=== PATIENT | female | born 1945 | race Caucasian/White ===

== ENCOUNTER 2017-04-10 12:33 | Emergency (ER) | payer MEDICARE, OTHER ==
--- NOTE | 2017-04-10 13:15 | ERNOTE ---
Date of Service: 04/10/17 Time Seen by Provider: 04/10/17 13:02 Stated Complaint: URI Presenting Symptoms:: other Source: patient, family, RN notes reviewed Exam Limitations: no limitations Immunizations: IMMUNIZATION HX Immunizations Up to Date Yes History of Influenza Vaccine Yes Hx Pneumococcal Vaccination Yes Allergies/Adverse Reactions: Allergies Sulfa (Sulfonamide Antibiotics) Allergy (Mild, Verified 04/10/17 12:42) Vomiting Home Medications: HOME MEDICATIONS Multivit-Min/FA/Lycopene/Lut [Centrum Silver Tablet] 1 tab PO DAILY 02/17/14 [ Last Taken Unknown] Albuterol Sulfate/Ipratropium [Duoneb 2.5-0.5MG/3ML Soln] 3 ml IH Q6H PRN #40 nebu 04/10/17 [Last Taken Unknown] Azithromycin [Zithromax] 250 mg PO DAILY #4 tablet 04/10/17 [Last Taken Unknown] Escitalopram Oxalate 10 mg PO DAILY 04/10/17 [Last Taken Unknown] Multivitamin/Iron/Folic Acid [Centrum Adults Tablet] 1 each PO DAILY 04/10/17 [ Last Taken Unknown] Promethazine HCl/Codeine [Prometh-Codein 6.25-10 mg/5 ml] 5 ml PO Q4H PRN #120 ml 04/10/17 [Last Taken Unknown] Pseudoephedrine HCl [Pseudoephedrine ER] 120 mg PO BID PRN 04/10/17 [Last Taken Unknown] - History of Present Ilness Narrative: 71 year old female brought to the ED by her daughter for tachycardia and a low oxygen saturation. The patient was diagnosed with influenza on 04/08. She was started on Tamiflu and pseudophed. She reports feeling better yesterday, but today is having more shortness of breath and chest discomfort. Her daughter is a RT. She checked her O2 sat and found it to be 88% with a heart rate in the 120 's. Her chest discomfort is in the mid-sternal region and radiates into her back. It is worse with coughing and deep breathing. She has not had any medications today except for the Tamiflu and pseudophed. Modifying Factors - Improves: Reports: rest Modifying Factors - Worsens: Reports: activity Prior Treatment: Reports: recently seen. Denies: currently on antibiotics Review of Systems - Review of Systems Constitutional: Present: fever, chills, fatigue, malaise, decreased activity level EYE: Absent: eye pain, vision changes ENT: Present: nose congestion. Absent: ear pain, nasal drainage, sore throat Respiratory: Present: shortness of breath, cough. Absent: orthopnea, wheezing, stridor Cardiology: Present: chest pain. Absent: palpitations, syncope, edema, claudication Gastrointestinal/Abdominal: Absent: nausea, abdominal pain Genitourinary: Present: no symptoms reported Musculoskeletal: Present: no symptoms reported Skin: Absent: rash, lesions, lumps Neurological: Present: headache. Absent: dizziness/light-headedness Endocrine: Present: no symptoms reported Hematologic/Lymphatic: Absent: easy bruising, easy bleeding Psych: Present: no symptoms reported - Patient's Past Medical History Patient History - Medical: Depression Patient History - Cardiac/Respiratory: No pertinent hx Patient History - Cancer: No Hx of Cancer Patient History - Surgical Procedures: T & A Patient History - Other: None LMP (females 10-50): Menopausal - Social History Living Situations: home Psych History: Hx of Depression, Current tx/ever been on anti-depressants or anti-anxiety meds Smoking Status: Current every day smoker Alcohol Use: rarely Drug Use: none - Immunizations Immunizations Up to Date: Yes Hx Pneumococcal Vaccination: Yes History of Influenza Vaccine: Yes Physical Exam - Physical Exam General Appearance: Present: wd/wn, alert, no apparent distress, thin Head Exam: Present: normal inspection Eye Exam: Normal inspection: bilateral Ears, Nose, Throat: Present: normal ENT inspection, normal pharynx Neck: Present: normal inspection, nontender, supple Respiratory: Present: no respiratory distress, no accessory muscle use, decreased breath sounds, expiration (prolonged) Cardiovascular/Chest: Present: no murmur, normal peripheral pulses, tachycardia Extremity Exam: Present: normal inspection, normal range of motion, no edema Neurological Exam: Present: alert, oriented, normal mood/affect, no motor/ sensory deficits Skin Exam: Present: normal color, warm/dry ED Progress - Results and Orders Patient's Lab Results:: I have reviewed the patient's lab results. - Vital Signs Patient's Vital Signs:: I have reviewed the patient's vital signs. Vital Signs: Vital Signs 04/10/17 04/10/17 12:42 13:10 Temperature 37.5 C Pulse Rate 104 H 100 Respiratory 16 16 Rate Blood Pressure 111/65 102/66 O2 Sat by Pulse 91 93 Oximetry - EKG EKG: ST depression, other - sinus tach 111 EKG read: Reviewed by me - X-Ray X-Ray #1 X-Ray: chest Interpretation: Reviewed by me X-ray Comments: IMPRESSION: MILD BIBASILAR CONSOLIDATION LEFT WORSE THAN RIGHT. AGAIN THIS MAY BE ATELECTASIS OR SCARRING THOUGH DEVELOPING INFECTIOUS INFILTRATES MUST BE CONSIDERED CLINICALLY. Electronically signed by Jeffery Matthews M.D.. - CT/Ultrasound CT/Ultrasound Narrative: CTA Chest IMPRESSION: 1. Negative for acute pulmonary thromboembolism. 2. Negative for acute thoracic aortic finding. 3. Bilateral bronchial wall thickening, and bilateral basal segmental bronchial opacities suggestive of retained mucous secretions/mucous plugging, or alternatively aspirated material. Correlate clinically. 4. Bilateral lower lobe basal segmental patchy airspace opacities. Lingular peripheral small opacity noted. Morphologically suggestive of infectious or inflammatory process. Correlate clinically for multifocal pneumonia. Recommend follow-up chest CT in 3 months to document resolution. 5. Nonspecific mediastinal lymphadenopathy. 6. Incidental 15 mm nodular lesion of the central left adrenal gland, which is indeterminate. Recommend routine characterization by MRI of the abdomen (preferred), versus adrenal protocol CT ( if MRI is contraindicated). Electronically signed by Moon Walker M.D.. Moon Walker MD - Progress/Reassessment Chief Complaint: Upper Respiratory Symptoms Progress:: Improved Departure Clinical Impression: Multifocal pneumonia - Departure Disposition: Home Follow Up Needed Condition: Stable Instructions: Community-Acquired Pneumonia, Adult, [id number] Additional Instructions: Stop pseudophed Follow up with your doctor in 1 week for recheck, return to ER if symptoms worsen Stop smoking Referrals: Sergey Cohen DO [Primary Care Provider] - Prescriptions: Albuterol Sulfate/Ipratropium [Duoneb 2.5-0.5MG/3ML Soln] 3 ml IH Q6H PRN #40 nebu PRN Reason: Wheezing Azithromycin [Zithromax] 250 mg PO DAILY #4 tablet Promethazine HCl/Codeine [Prometh-Codein 6.25-10 mg/5 ml] 5 ml PO Q4H PRN #120 ml PRN Reason: Cough
[2017-04-10 13:30] LABS: Hematocrit 40.2 % (37.0-47.0); Mean Cell Volume 90.5 fl (78-100); Mean Corpuscular Hemoglobin 31.5 pg (27-31); Mean Corpuscular Hgb Conc 34.8 g/dl (32-36); Neutrophil # 10.4 K/mm3 (1.3-6.0); Neutrophil % 85.6 % (42-75.0); Platelet Count 195 K/mm3 (150-450); Red Blood Count 4.44 M/mm3 (4.2-5.4); Red Cell Distribution Width 12.9 % (11.5-14.0); White Blood Count 12.2 K/mm3 (4.0-10.5)
[2017-04-10 13:50] LABS: ALT 20 U/L (19-67); AST 17 U/L (0-48); Albumin * 3.4 gm/dl (3.4-5.0); Alkaline Phosphatase * 65 U/L (50-170); BUN/Creatinine Ratio 17.2 (9.0-21.6); Bilirubin, Total 0.5 mg/dL (0.0-1.1); Blood Urea Nitrogen 15 mg/dL (3-23); Ca. Corrected For Albumin 8.9 mg/dL (8.4-10.2); Calcium * 8.7 mg/dL (7.9-10.9); Carbon Dioxide 25.7 mmol/L (24-32.6); Chloride 97 mmol/L (97-106); Glucose * 116 mg/dL (70-110); Potassium 3.7 mmol/L (3.4-4.6); Sodium 132 mmol/L (132-142); Total Protein 6.7 gm/dL (6.2-8.2); Troponin I Less than 0.017 ng/ml (0.00-0.10)
[2017-04-10] MEDS ORDERED: AZITHROMYCIN 250 MG TABLET PO ONE (14:13)
[2017-04-10] MEDS ORDERED: ALBUTEROL SULFATE/IPRATROPIUM 3 ML NEBU IH ONE ×2 (14:13→14:14)
[2017-04-10] MEDS ORDERED: AZITHROMYCIN 250 MG TABLET ONE (14:14)
[2017-04-10 15:47] VITALS: BP 113/62
== END 2017-04-10 16:02 | disposition home or self-care (01) ==
LOC: ER 12:33
DX: J18.8 Other pneumonia, unspecified organism (principal); F17.200 Nicotine dependence, unspecified, uncomplicated

== ENCOUNTER 2018-06-27 06:23 | Inpatient (IN) ==
--- NOTE | 2018-06-19 12:17 | ANES ---
Anesthesia Pre Procedure Eval HOME MEDICATIONS calcium carbonate-vitamin D3 600 mg calcium-200 unit capsule 2 cap PO DAILY cap 11/26/17 [Last Taken Unknown] yomyamge-vxybzgj-jdlv-lutein tablet 1 mcg PO DAILY tab 11/28/17 [Last Taken Unknown] glucosamine-chondroitin 250 mg-200 mg tablet 1 tab PO BID tab 01/16/18 [Last Taken Unknown] escitalopram 10 mg tablet 15 mg PO DAILY #45 tab 04/24/18 [Last Taken Unknown] ibuprofen 800 mg tablet 800 mg PO BID-TID PRN 06/05/18 [Last Taken Unknown] walker See Dose Instructions .ROUTE .MEDSUPPLY #1 ea 06/18/18 [Last Taken Unknown] Allergies/Adverse Reactions: Allergies Allergy/AdvReac Type Severity Reaction Status Date / Time Sulfa (Sulfonamide Allergy Mild Vomiting Verified 06/06/18 13:20 Antibiotics) - Planned Procedure Planned Procedure: L total knee on 06/27/18 and R total knee on 06/29 Medication List Reviewed:: Yes Allergies Verified: Yes Medical History (Last Reviewed 06/19/18 @ 12:16 by Zana Kaplan CRNA) Major depression (Chronic) Generalized anxiety disorder (Chronic) Chickenpox Onset Date: Unknown Chronic otitis media Onset Date: Unknown DJD (degenerative joint disease) Onset Date: Unknown DJD (degenerative joint disease) of knee Onset Date: Unknown Depression Eustachian tube dysfunction Onset Date: Unknown bilateral Headache Onset Date: Unknown Hearing loss Onset Date: Unknown Knee pain Onset Date: Unknown Mild episode of recurrent depressive disorder Osteopenia Onset Date: Unknown Otorrhea of right ear Onset Date: Unknown Tobacco abuse Onset Date: Unknown Tonsillitis, chronic Onset Date: Unknown Bronchitis Measles Mumps Pneumonia Rubella Surgical History (Last Reviewed 06/19/18 @ 12:16 by Zana Kaplan CRNA) History of adenoidectomy Onset Date: Unknown History of colonoscopy Onset Date: 02/25/14 Bhavaniely-' hyperplastic polyps x3. '14 tubular adenoma. Recheck 5 yrs.- 01/31/07, 02/25/14 Tinguely-hyperplastic polyp- 07/31/08 History of flexible sigmoidoscopy Onset Date: 02/20/07 Tinguely-hyperplastic polyps x3 History of tonsillectomy S/p bilateral myringotomy with tube placement Family History (Last Reviewed 02/05/19 @ 12:16 by Zana Kaplan CRNA) Father , 76 Cancer colon neoplasm, malignant Colon polyps lung problems Asthma Grandfather CVA (cerebral vascular accident) Brother Irregular heartbeat Hyperlipemia Mother Macular degeneration Osteoporosis Thyroid disease Hypothyroidism Hyperlipemia Grandmother CVA (cerebral vascular accident) Grandmother Cancer Grandfather Cancer stomach Brother Hyperlipemia - Family Anesthesia History Family History:: no untoward family reactions to anesthesia, no familial bleeding tendencies, no family history of clotting disorders, no family history of premature - Airway/Neck/Teeth Within Normal Limits:: Yes Denture Type: Full upper, Full lower Mallampatti Score: 1 Thyromental (T-M) distance: > 6 cm Mandibulo Hyoid distance: > 3 cm - Respiratory Respiratory History: COPD Smoking Status: Current every day smoker Discussed smoking cessation including day of surgery: Yes Sleep Apnea currently treated: No Sleep Apnea by current assessment: No Discussed Risks/Treatment of HOLLEY: No - Cardiovascular Tolerate Activity: Fair Heart Sounds: S1 & S2, Regular - Anesthesia Assessment and Plan ASA Class: PS, III Anesthesia Type Plan: Block - Left ultrasound guided adductor canal nerve block for postop analgesia, Spinal
[~2018-06-27 06:23] MED LIST: MORPHINE SULFATE 15 MG TABLET.SA PO PRN; ROPIVACAINE HCL/PF 100 MG, EPINEPHrine 0.2 MG, KETOROLAC TROMETHAMINE 30 MG in NORMAL S... IJ PRN; TRANEXAMIC ACID 1,000 MG in NORMAL SALINE 100 ML IV PRN; ceFAZolin SODIUM 1 GM VIAL IV PRN
[2018-06-27] MEDS: RINGER'S SOLUTION,LACTATED 1,000 ML IV PRN ×2 (07:13→09:03)
[2018-06-27] MEDS ORDERED: ONDANSETRON HCL/PF 2 MG/ML VIAL IV PRN (09:43)
[2018-06-27] MEDS ORDERED: diphenhydrAMINE HCL 50 MG/ML VIAL IV PRN (09:43)
[2018-06-27] MEDS ORDERED: MAG HYDROX/ALUMINUM HYD/SIMETH 30 ML UDC PO PRN (09:43)
[2018-06-27] MEDS ORDERED: ZOLPIDEM TARTRATE 5 MG TABLET PO PRN (09:43)
[2018-06-27] MEDS ORDERED: MAGNESIUM HYDROXIDE 30 ML UDC PO PRN (09:43)
[2018-06-27] MEDS ORDERED: DEXTROSE 5%-LACTATED RINGERS 1,000 ML IV PRN (09:43)
[2018-06-27] MEDS ORDERED: ACETAMINOPHEN 500 MG TABLET PO PRN (09:43)
[2018-06-27] MEDS ORDERED: MORPHINE SULFATE 2 MG/ML DISP.SYRIN IV PRN (09:43)
--- NOTE | 2018-06-27 09:47 | OR ---
Operative Report - Dictated Report Narrative: Date: 06/27/2018 Preoperative diagnosis: Left Knee degenerative joint disease. Postoperative diagnosis: Left Knee degenerative joint disease. Procedure: Left Total knee arthroplasty. Surgeon: Alpesh Phillips M.D. Rubbish Collector: Earl Horn PA-C (provided and essential set of skilled, educated hands that assisted with transfer, positioning, prepping, draping, manipulation, retraction, placement of jigs, injection, insertion of implants, irrigation, closure wounds, and dressings all of which could not be performed by the available surgical crew) Anesthesia: Spinal with regional block and local periarticular joint injection. Complications: None Specimens: Bone for disposal. Estimated blood loss: Minimal. Tourniquet time: 88 Minutes at 325 millimeters of mercury. Retained implants: Depuy Attune size 6 narrow left lugged cemented posterior stabilized femoral co mponent. Size 5 fixed-bearing cemented tibial platform. 6 by 8 millimeter posterior stabilized cross-linked tibial insert. 38 millimeter medialized patella button. Indications: Mrs. Murry is a 72-year-old female who has had long-standing bilateral knee pain. She is here today for her first of 2 staged bilateral total knees. Today her left for long-standing knee pain and arthrosis. This p atient was followed in my clinic for period of time with significant complaints of left knee pain consistent with arthritic changes. She had failed conservative measures including, but not limited to, activity modification, passage of time, medications, and other conservative measures. Patient wished to proceed with surgical treatment. The risks, benefits, and alternatives were discussed in clinic. The risks of , blood clots, bleeding, infection, nerve/tendon blood vessel/ injury, malposition of components, intraoperative fracture, postoperative limited range of motion, persistent pain, failure of components, and need for additional procedures. Patient wished to proceed consent was obtained after answering all questions. Procedure: After marking the correct extremity on the floor, the patient was taken to the operating room. A timeout was performed. IV antibiotics consisting of Ancef were administered prior to the procedure. A regional followed by spinal anesthetic was induced by anesthesia, per my request, on the operative table with all bony prominences well-padded. Solis catheter was placed, and a bump was placed under the operative side buttock. SCDs and CARLOS hose were utilized on the nonoperative leg. A well-padded tourniquet was applied to the operative thigh. The operative leg was then pre-scrubbed with alcohol, prepped, and draped in a standard sterile fashion. After exsanguinating the extremity with an Esmarch bandage, the tourniquet was inflated. After marking out the anterior knee for standard incision centered over the patella, the skin was incised and dissected down to the joint retinaculum. The joint retinaculum was marked out as well as the horizontal axis of the patella, and a standard medial parapatellar arthrotomy was then made. The most proximal aspect of the quadriceps tendon and the patella tendon insertion were protected from release. A partial synovectomy was performed as well as a resection of the infrapatellar fat pad. The distal femoral fat pad proximal to the trochlea was also resected using cautery. The soft tissues were elevated off the medial aspect of the proximal tibia using a Graves elevator ensuring that we did not transect the medial collateral ligament. Upon initial evaluation range of motion was approximately 0 degrees to 130 degrees of flexion. There were signs of advanced arthrosis in the medial and patellofemoral greater than lateral joint spaces. There were large marginal osteophytes which were removed with a rongeur. The knee was hyperflexed and the patella was tucked laterally. Protecting the surrounding soft tissues with Homans, an entry drill was placed down the femoral canal using Whitesides line for guidance into the entry point. The intramedullary femoral alignment carlos alberto was utilized in order to cut the distal femur in 5 degrees of valgus resecting 10 millimeters of bone. Next the distal femur was sized to a size 6. A posterior referencing guide was utilized to place the distal femoral cutting block in 3 degrees of external rotation. This was pinned into place. The rotation was confirmed both visually and based on anatomic landmarks. The 4 in 1 cutting jig of the appropriate size was utilized in order to make all bony cuts. The angle wing was used to ensure no notching. Retractors were utilized in order to protect surrounding soft tissues. This cut did not result in any excessive notching. We then cut the box centered over the distal femur. This allowed for resection of the anterior and posterior cruciate ligaments. I then turned my attention to the preparation of the tibia. Using an extra medullary tibial alignment carlos alberto, 2 millimeters of bone was resected off the medial articular surface. This was made perpendicular to the mechanical axis of the joint with the alignment carlos alberto centered over the ankle mortise. The alignment carlos alberto was checked and was noted to be parallel to the mechanical axis, centered over the medial one third of the tibial tubercle, paralleling the anterior surface of the tibia. We then turned our attention to the remaining meniscus and soft tissues. These were removed while protecting the surrounding ligaments and soft tissues. The marginal osteophytes off the anterior, posterior, medial, lateral aspects of the femur and tibia were removed. The tibia was sized out to a size 5. Next the tibia was drilled and punched in an externally rotated position. Next the trial femur and a series of tibial inserts were utilized in order to allow for full extension and maximal flexion. It was found that a 8 millimeter insert gave the best range of motion and stability at multiple flexion points as well as at full extension there was less than 2 mm of gapping both medially and laterally. There is minimal anterior translation with the knee at 90 degrees of flexion and no signs of being able to dislocate the knee. The patella was then prepared. The initial thickness was 23 millimeters. This was reamed down to 13 millimeters parallel to the anterior surface of the patella. It was sized out to a size 38 medialized patella button. This was then drilled and trialed. Without any medial restraint the patella tracked appropriately and did not sublux or dislocate. At this point, it was felt these were the appropriate sized implants, and all trials were removed. The standard periarticular joint injection consisting of ropivacaine, Toradol, and epinephrine were injected into the periarticular joint tissues. The bony surfaces were thoroughly irrigated with a pulsatile-suction saline irrigation device. A bone plug from the prior resected anterior chamfer cut was placed into the drill hole at the distal femur. The bony surfaces were then dried in preparation for placement of the implants. The cement was vacuum mixed per the education general manager's instructions. The cement was placed on the dry bony surfaces and posterior aspect of the implants. The implants were impacted into place, removing all extruded cement. At this point anesthesia administered tranexamic acid per protocol intravenously. The knee was placed in extension with axial loading with the trial insert while the cement cured. Once the cement cured, all remaining extruded cement was removed. The knee was placed through a range of motion with the trial insert to ensure appropriate range of motion and stability. Final range of motion was approximately 0 to 130 degrees. The knee was again thoroughly irrigated with pulsatile saline lavage. The final polyethylene insert was then impacted into place ensuring no retained soft tissues. The remaining periarticular joint injection was injected. A medium Hemovac drain was placed exiting superior laterally. The knee was then placed over a triangle and the arthrotomy was closed with interrupted #1 Vicryl after thoroughly irrigating the joint. The deep and subcutaneous tissues were closed with interrupted 0 and 3-0 Vicryl respectively. Skin was closed with a running subcutaneous 3-0 Monocryl and Prineo Dermabond dressing. 4 x 4's, Sof-Rol, and a full leg Ab wrap were applied. All sponge, needle, blade, and instrument counts were correct prior to closing the wounds. Postoperative condition: The patient was awoken and transferred to the postanesthesia care unit in stable condition. Plan is to be admitted to the inpatient medical/surgical floor postoperatively for 24 hours of IV antibiotics, physical therapy, occupational therapy, and medical comanagement. Patient will be weightbearing as tolerated with range of motion as tolerated. DVT prophylaxis will be with SCDs, CARLOS hose, and pharmacological anticoagulation. Anticipated hospital stay is approximately 1-3 days.
--- NOTE | 2018-06-27 10:02 | ANES ---
Anesthesia Procedure Note Procedure Note: ANESTHESIA PROCEDURE NOTE Date of Procedure: 06/27/2018 Time of procedure: 7:45 AM. Performed by: Mariusz Price CRNA, MSN Resident Services Coordinator: Rosy Lawton RN. Preprocedure diagnosis: Post left knee arthroplasty pain. Post procedure diagnosis: Same. Procedure: Left Adductor Canal Block. Indications: Post knee arthroplasty pain relief. Findings: See below. Details of the procedure: The patient was brought to OR #4 and placed in supine position. The patient's left femoral area to the knee was prepped with chlorhexidine and using ultrasound guidance the left femoral artery wasidentified at approximately the proximal one third femur. Under ultrasound guidance the saphenous nerve was approached with visualization of a 4 inch shielded block needle approaching the adductor canal just under the sartorius muscle. Once saphenous nerve was identified with proximity to the needle tip, the saphenous nerve was surrounded with 20 mL bupivacaine 0.25% with 1-200,000 epinephrine. Please see radiology/ultrasound report for details and retained images of the procedure. EBL: 0 Fluids: N/A. Specimen: N/A. Post procedure condition: The patient tolerated the procedure well. No complications were noted. Thank you for this consultation. Mariusz Price CRNA, MSN
--- NOTE | 2018-06-27 10:03 | ANES ---
Post Anesthesia Discharge - Transfer of Care Transfer of Care handoff given to nurse: Yes - Discharge from PACU Discharge from PACU when meets criteria: Yes - Awake and comfortable.
[2018-06-27] MEDS: KETOROLAC TROMETHAMINE 15 MG/ML VIAL IV SCH ×3 (10:33→23:28)
--- NOTE | 2018-06-27 11:18 | ANES ---
Post Anesthesia Assessment - Vital Signs Vitals: Last Vital Signs Temp 36.5 C 06/27/18 10:33 Pulse 59 L 06/27/18 10:33 Resp 16 06/27/18 10:33 BP 120/70 06/27/18 10:33 Pulse Ox 99 06/27/18 10:33 Airway Patency: Normal - Mental Status Level Of Consciousness: Awake, Alert, Appropriate - Pain Level Pain Score: 0 - N/V Assessment Nausea/Vomiting Presence: None Dehydration:: No
[2018-06-27] MEDS: ceFAZolin SODIUM 1 GM in DEXTROSE 5 % IN WATER 100 ML IV SCH ×4 (13:54→18:41)
[2018-06-27] MEDS: SENNOSIDES/DOCUSATE SODIUM 1 TAB TABLET PO SCH (20:07)
[2018-06-27] MEDS: MORPHINE SULFATE 15 MG TABLET.SA PO SCH (20:10)
[2018-06-28] MEDS: ceFAZolin SODIUM 1 GM in DEXTROSE 5 % IN WATER 100 ML IV SCH ×2 (00:58)
[2018-06-28] MEDS: KETOROLAC TROMETHAMINE 15 MG/ML VIAL IV SCH ×4 (04:41→22:48)
[2018-06-28 05:17] LABS: Hemoglobin 11.6 gm/dL (12.5-16.0); Mean Cell Volume 91.6 fl (78-100); Mean Corpuscular Hemoglobin 30.4 pg (27-31); Mean Corpuscular Hgb Conc 33.1 g/dl (32-36); Mean Platelet Volume 10.4 fl (8-12.5); Platelet Count 189 K/mm3 (150-450); Red Blood Count 3.82 M/mm3 (4.2-5.4); Red Cell Distribution Width 13.5 % (11.5-14.0); White Blood Count 6.4 K/mm3 (4.0-10.5)
[2018-06-28 05:25] LABS: Anion Gap 11.3 mmol/L (6.8-13.8); BUN/Creatinine Ratio 24.2 (9.0-21.6); Calcium * 8.3 mg/dL (7.9-10.9); Estimated Creat Clear 55.8; Potassium 4.3 mmol/L (3.4-4.6)
[2018-06-28] MEDS: oxyCODONE HCL/ACETAMINOPHEN 1 TAB TABLET PO PRN ×2 (08:10→19:35)
--- NOTE | 2018-06-28 08:29 | PN ---
Subjective - Date and Time Seen Date: 06/28/18 Time: 08:26 Subjective Narrative: Reports no complaints. Minimal pain. Working with therapy now. No nausea. No lightheadedness. Therapy reports ambulating well. Objective Objective Narrative: Bandages C/D/I. Drain with minimal output. N/V intact LLE. Patient up in chair working on ROM with PT right now. - Vitals Vitals: Last Vital Signs Temp 36.7 C 06/28/18 06:53 Pulse 48 L 06/28/18 06:53 Resp 18 06/28/18 06:53 BP 123/68 06/28/18 06:53 Pulse Ox 98 06/28/18 06:53 - Abnormal Lab Findings Abnormal Lab Findings: Abnormal Lab Results 06/28/18 06/28/18 Range/Units 05:05 05:05 RBC 3.82 L (4.2-5.4) M/mm3 Hgb 11.6 L (12.5-16.0) gm/dL Hct 35.0 L (37.0-47.0) % Chloride 108 H (97-106) mmol/L BUN/Creatinine Ratio 24.2 H (9.0-21.6) - Exam Constitutional: Present: Alert, Oriented x3, Cooperative, No distress Cauti Physician Documentation - Urinary Catheter Management Urethral (Solis) Date of Insertion: 06/27/18 Time of Insertion: 08:00 Assessment/Plan - Problems/Diagnosis (1) Status post left knee replacement Problem: Acute Narrative: PT, pain control, anticoagulation, NPO midnight tonight for right total knee in am. (2) Acute blood loss anemia Problem: Acute
[2018-06-28] MEDS: ENOXAPARIN SODIUM 40 MG/0.4 ML SYRG SC SCH (08:45)
[2018-06-28] MEDS: MULTIVIT-MIN/FA/LYCOPEN/LUTEIN 1 TAB TABLET PO SCH (08:47)
[2018-06-28] MEDS: MORPHINE SULFATE 15 MG TABLET.SA PO SCH ×2 (08:47→21:33)
[2018-06-28] MEDS: CALCIUM CARBONATE/VITAMIN D3 1 TAB TABLET PO SCH (08:48)
[2018-06-28] MEDS: ESCITALOPRAM OXALATE 10 MG TAB PO SCH (08:49)
--- NOTE | 2018-06-28 16:35 | PN ---
Subjective - Date and Time Seen Date: 06/28/18 Time: 16:30 Subjective Narrative: Allison Phillips reports feeling great. She has some achy pain at surgery site, but overall feels well. Denies shortness of breath, nausea, vomiting. No bowel movement since surgery, but no abdominal discomfort. Objective - Vitals Vitals: Last Vital Signs Temp 36.7 C 06/28/18 14:59 Pulse 55 L 06/28/18 14:59 Resp 14 06/28/18 14:59 BP 125/74 06/28/18 14:59 Pulse Ox 99 06/28/18 14:59 - Abnormal Lab Findings Abnormal Lab Findings: Abnormal Lab Results 06/28/18 06/28/18 Range/Units 05:05 05:05 RBC 3.82 L (4.2-5.4) M/mm3 Hgb 11.6 L (12.5-16.0) gm/dL Hct 35.0 L (37.0-47.0) % Chloride 108 H (97-106) mmol/L BUN/Creatinine Ratio 24.2 H (9.0-21.6) - Exam Constitutional: Present: Alert, Oriented x3, Cooperative ENT Exam: Present: hearing grossly normal Respiratory: Present: lungs clear, normal breath sounds Cardiovascular/Chest: Present: no murmur, bradycardia Abdomen: Present: Normal bowel sounds, soft, nontender, nondistended Cauti Physician Documentation - Urinary Catheter Management Urethral (Solis) Date of Insertion: 06/27/18 Time of Insertion: 08:00 Assessment/Plan Plan Narrative: Allison Phillips is overall doing well. She has mild bradycardia, but this is asymptomatic. She has mild acute blood loss anemia. There are no medical concerns at this time. - Problems/Diagnosis (1) Acute blood loss anemia Problem: Acute (2) Status post left knee replacement Problem: Acute
[2018-06-28] MEDS: SENNOSIDES/DOCUSATE SODIUM 1 TAB TABLET PO SCH (21:33)
[2018-06-29] MEDS ORDERED: ROPIVACAINE HCL/PF 100 MG, EPINEPHrine 0.2 MG, KETOROLAC TROMETHAMINE 30 MG in NORMAL S... IJ PRN (06:00)
[2018-06-29] MEDS ORDERED: TRANEXAMIC ACID 1,000 MG in NORMAL SALINE 100 ML IV PRN (06:00)
[2018-06-29] MEDS ORDERED: ceFAZolin SODIUM 1 GM VIAL IV PRN ×2 (06:00→07:00)
[2018-06-29] MEDS ORDERED: MORPHINE SULFATE 15 MG TABLET.SA PO PRN (06:00)
[2018-06-29] MEDS: KETOROLAC TROMETHAMINE 15 MG/ML VIAL IV SCH ×4 (06:03→21:29)
[2018-06-29] MEDS: RINGER'S SOLUTION,LACTATED 1,000 ML IV PRN ×3 (06:04→09:35)
--- NOTE | 2018-06-29 07:24 | ANES ---
Anesthesia Pre Procedure Eval Vitals/Labs: Last Vital Signs Temp 36.6 C 06/29/18 06:20 Pulse 55 L 06/29/18 06:20 Resp 18 06/29/18 06:20 BP 128/62 06/29/18 06:20 Pulse Ox 94 06/29/18 06:20 HOME MEDICATIONS calcium carbonate-vitamin D3 600 mg calcium-200 unit capsule 2 cap PO DAILY cap 11/26/17 [Last Taken Unknown] wvanqysx-axqapyx-urgt-lutein tablet 1 mcg PO DAILY tab 11/28/17 [Last Taken 06/26/18] glucosamine-chondroitin 250 mg-200 mg tablet 1 tab PO BID tab 01/16/18 [Last Taken 06/20/18] escitalopram 10 mg tablet 15 mg PO DAILY #45 tab 04/24/18 [Last Taken 06/26/18] ibuprofen 800 mg tablet 800 mg PO BID-TID PRN 06/05/18 [Last Taken 06/20/18] walker See Dose Instructions .ROUTE .MEDSUPPLY #1 ea 06/18/18 [Last Taken Unknown] Allergies/Adverse Reactions: Allergies Allergy/AdvReac Type Severity Reaction Status Date / Time Sulfa (Sulfonamide Allergy Mild Flu-like Verified 06/27/18 06:35 Antibiotics) symptoms - Planned Procedure Planned Procedure: L total knee on 06/27/18 and R total knee on 06/29 Medication List Reviewed:: Yes Allergies Verified: Yes Medical History (Last Reviewed 06/29/18 @ 07:23 by Jeffery Yang CRNA) Major depression (Chronic) Generalized anxiety disorder (Chronic) Chickenpox Onset Date: Unknown Chronic otitis media Onset Date: Unknown DJD (degenerative joint disease) Onset Date: Unknown DJD (degenerative joint disease) of knee Onset Date: Unknown Depression Eustachian tube dysfunction Onset Date: Unknown bilateral Headache Onset Date: Unknown Hearing loss Onset Date: Unknown Knee pain Onset Date: Unknown Mild episode of recurrent depressive disorder Osteopenia Onset Date: Unknown Otorrhea of right ear Onset Date: Unknown Tobacco abuse Onset Date: Unknown Tonsillitis, chronic Onset Date: Unknown Bronchitis Measles Mumps Pneumonia Rubella Surgical History (Last Reviewed 06/29/18 @ 07:23 by Jeffery Yang CRNA) History of adenoidectomy Onset Date: Unknown History of colonoscopy Onset Date: 02/25/14 Bhavaniely- hyperplastic polyps x3. '14 tubular adenoma. Recheck 5 yrs.- 01/31/07, 02/25/14 Tinguely-hyperplastic polyp- 07/31/08 History of flexible sigmoidoscopy Onset Date: 02/20/07 Tinguely-hyperplastic polyps x3 History of tonsillectomy S/p bilateral myringotomy with tube placement Family History (Last Reviewed 06/29/18 @ 07:23 by Jeffery Yang CRNA) Father , 76 Cancer colon neoplasm, malignant Colon polyps lung problems Asthma Grandfather CVA (cerebral vascular accident) Brother Irregular heartbeat Hyperlipemia Mother Macular degeneration Osteoporosis Thyroid disease Hypothyroidism Hyperlipemia Grandmother CVA (cerebral vascular accident) Grandmother Cancer Grandfather Cancer stomach Brother Hyperlipemia - Family Anesthesia History Family History:: no untoward family reactions to anesthesia - Airway/Neck/Teeth Within Normal Limits:: Yes Teeth Condition: intact Neck Exam: full range of motion Mallampatti Score: 1 Thyromental (T-M) distance: > 6 cm Mandibulo Hyoid distance: > 3 cm - Respiratory Respiratory Physical: lungs clear, decreased breath sounds Smoking Status: Current every day smoker Discussed smoking cessation including day of surgery: Yes Sleep Apnea currently treated: No Sleep Apnea by current assessment: No - Cardiovascular Tolerate Activity: Fair Heart Sounds: S1 & S2, Regular - Anesthesia Assessment and Plan ASA Class: PS, III Anesthesia Type Plan: Spinal - rt adductor canal block for postop analgesia
[2018-06-29] MEDS: ENOXAPARIN SODIUM 40 MG/0.4 ML SYRG SC SCH (09:22)
[2018-06-29] MEDS: MORPHINE SULFATE 15 MG TABLET.SA PO SCH ×2 (09:23→21:01)
[2018-06-29] MEDS ORDERED: DEXTROSE 5%-LACTATED RINGERS 1,000 ML IV PRN (09:58)
--- NOTE | 2018-06-29 09:58 | OR ---
Operative Report - Dictated Report Narrative: Date: 06/29/2018 Preoperative diagnosis: Right Knee degenerative joint disease. Postoperative diagnosis: Right Knee degenerative joint disease. Procedure: Right Total knee arthroplasty. Surgeon: Alpesh Phillips M.D. Coding Advisor: Earl Horn PA-C (provided and essential set of skilled, educated hands that assisted with transfer, positioning, prepping, draping, manipulation, retraction, placement of jigs, injection, insertion of implants, irrigation, closure wounds, and dressings all of which could not be performed by the available surgical crew) Anesthesia: Spinal with regional block and local periarticular joint injection. Complications: None Specimens: Bone for disposal. Estimated blood loss: Minimal. Tourniquet time: 82 Minutes at 325 millimeters of mercury. Retained implants: Depuy Attune size 6 narrow right lugged cemented posterior stabilized femoral component. Size 5 fixed-bearing cemented tibial platform. 6 by 8 millimeter posterior stabilized cross-linked tibial insert. 38 millimeter medialized patella button. Indications: Mrs. Murry is a 72-year-old female who underwent left total knee arthroplasty 2 days ago is here today for her right total knee secondary to long-standing right knee pain. This patient was followed in my clinic for period of time with significant complaints of right knee pain consistent with arthritic changes. She had failed conservative measures including, but not limited to, activity modification, passage of time, medications, and other conservative measures. Patient wished to proceed with surgical treatment. The risks, benefits, and alternatives were discussed in clinic. The risks of , blood clots, bleeding, infection, nerve/tendon blood vessel/ injury, malposition of components, intraoperative fracture, postoperative limited range of motion, persistent pain, failure of components, and need for additional procedures. Patient wished to proceed consent was obtained after answering all questions. Procedure: After marking the correct extremity on the floor, the patient was taken to the operating room. A timeout was performed. IV antibiotics consisting of Ancef were administered prior to the procedure. A regional followed by spinal anesthetic was induced by anesthesia, per my request, on the operative table with all bony prominences well-padded. Solis catheter already in place, and a bump was placed under the operative side buttock. SCDs and CARLOS hose were utilized on the nonoperative leg. A well-padded tourniquet was applied to the operative thigh. The operative leg was then pre-scrubbed with alcohol, prepped, and draped in a standard sterile fashion. After exsanguinating the extremity with an Esmarch bandage, the tourniquet was inflated. After marking out the anterior knee for standard incision centered over the patella, the skin was incised and dissected down to the joint retinaculum. The joint retinaculum was marked out as well as the horizontal axis of the patella, and a standard medial parapatellar arthrotomy was then made. The most proximal aspect of the quadriceps tendon and the patella tendon insertion were protected from release. A partial synovectomy was performed as well as a resection of the infrapatellar fat pad. The distal femoral fat pad proximal to the trochlea was also resected using cautery. The soft tissues were elevated off the medial aspect of the proximal tibia using a Graves elevator ensuring that we did not transect the medial collateral ligament. Upon initial evaluation range of motion was approximately 0 degrees to 130 degrees of flexion. There were signs of advanced arthrosis in the medial and patellofemoral greater than lateral joint spaces. There were large marginal osteophytes which were removed with a rongeur. The knee was hyperflexed and the patella was tucked laterally. Protecting the surrounding soft tissues with Homans, an entry drill was placed down the femoral canal using Whitesides line for guidance into the entry point. The intramedullary femoral alignment carlos alberto was utilized in order to cut the distal femur in 5 degrees of valgus resecting 10 millimeters of bone. Next the distal femur was sized to a size 6. A posterior referencing guide was utilized to place the distal femoral cutting block in 3 degrees of external rotation. This was pinned into place. The rotation was confirmed both visually and based on anatomic landmarks. The 4 in 1 cutting jig of the appropriate size was utilized in order to make all bony cuts. The angle wing was used to ensure no notching. Retractors were utilized in order to protect surrounding soft tissues. This cut did not result in any excessive notching. We then cut the box centered over the distal femur. This allowed for resection of the anterior and posterior cruciate ligaments. I then turned my attention to the preparation of the tibia. Using an extra medullary tibial alignment carlos alberto, 4 millimeters of bone was resected off the medial articular surface. This was made perpendicular to the mechanical axis of the joint with the alignment carlos alberto centered over the ankle mortise. The alignment carlos alberto was checked and was noted to be parallel to the mechanical axis, centered over the medial one third of the tibial tubercle, paralleling the anterior surface of the tibia. We then turned our attention to the remaining meniscus and soft tissues. These were removed while protecting the surrounding ligaments and soft tissues. The marginal osteophytes off the anterior, posterior, medial, lateral aspects of the femur and tibia were removed. The tibia was sized out to a size 5. Next the tibia was drilled and punched in an externally rotated position. Next the trial femur and a series of tibial inserts were utilized in order to allow for full extension and maximal flexion. It was found that a 8 millimeter insert gave the best range of motion and stability at multiple flexion points as well as at full extension there was less than 2 mm of gapping both medially and laterally. There is minimal anterior translation with the knee at 90 degrees of flexion and no signs of being able to dislocate the knee. The patella was then prepared. The initial thickness was 25 millimeters. This was reamed down to 14 millimeters parallel to the anterior surface of the patella. It was sized out to a size 38 medialized patella button. This was then drilled and trialed. Without any medial restraint the patella tracked appropriately and did not sublux or dislocate. At this point, it was felt these were the appropriate sized implants, and all trials were removed. The standard periarticular joint injection consisting of ropivacaine, Toradol, and epinephrine were injected into the periarticular joint tissues. The bony surfaces were thoroughly irrigated with a pulsatile-suction saline irrigation device. A bone plug from the prior resected anterior chamfer cut was placed into the drill hole at the distal femur. The bony surfaces were then dried in preparation for placement of the implants. The cement was vacuum mixed per the roller shop supervisor's instructions. The cement was placed on the dry bony surfaces and posterior aspect of the implants. The implants were impacted into place, removing all extruded cement. At this point anesthesia administered tranexamic acid per protocol intravenously. The knee was placed in extension with axial loading with the trial insert while the cement cured. Once the cement cured, all remaining extruded cement was removed. The knee was placed through a range of motion with the trial insert to ensure appropriate range of motion and stability. Final range of motion was approximately 0 to 130 degrees. The knee was again thoroughly irrigated with pulsatile saline lavage. The final polyethylene insert was then impacted into place ensuring no retained soft tissues. The remaining periarticular joint injection was injected. A medium Hemovac drain was placed exiting superior laterally. The knee was then placed over a triangle and the arthrotomy was closed with interrupted #1 Vicryl after thoroughly irrigating the joint. The deep and subcutaneous tissues were closed with interrupted 0 and 3-0 Vicryl respectively. Skin was closed with a running subcutaneous 3-0 Monocryl and Prineo Dermabond dressing. 4 x 4's, Sof-Rol, and a full leg Ab wrap were applied. All sponge, needle, blade, and instrument counts were correct prior to closing the wounds. Postoperative condition: The patient was awoken and transferred to the postanesthesia care unit in stable condition. Plan is to be admitted to the inpatient medical/surgical floor postoperatively for 24 hours of IV antibiotics, physical therapy, occupational therapy, and medical comanagement. Patient will be weightbearing as tolerated with range of motion as tolerated. DVT prophylaxis will be with SCDs, CARLOS hose, and pharmacological anticoagulation. Anticipated hospital stay is approximately 1-3 days.
--- NOTE | 2018-06-29 10:17 | ANES ---
Post Anesthesia Discharge - Transfer of Care Transfer of Care handoff given to nurse: Yes - Discharge from PACU Discharge from PACU when meets criteria: Yes
--- NOTE | 2018-06-29 10:21 | ANES ---
Anesthesia Procedure Note Procedure Note: ANESTHESIA PROCEDURE NOTE Date of procedure: 06/29/2018. Time of procedure: 08 00. Performed by: Prashant Yang CRNA Building Maintenance Superintendent: Christelle Vieira RN . Preprocedure diagnosis: Right knee DJD. Desire for postoperative analgesia. Post procedure diagnosis: Same. Procedure: Ultrasound-guided right adductor canal block Indications: Postoperative analgesia Findings: Patient brought to operating room #4 and placed in supine position. She was sedated. Patients right inner thigh was prepped with ChloraPrep. Ultrasound was utilized to identify adductor canal. A 20-gauge 4 inch regional block needle was advanced under ultrasound guidance until tip of needle was placed in adductor canal. 20 mL of 0.25% Marcaine with epinephrine 1 200,000 was injected with adequate spread of local anesthesia noted. EBL: Minimal. Fluids: N/A. Specimen: N/A. Post procedure condition: The patient tolerated the procedure well. No complications were noted. Thank you for this consultation Prashant Yang CRNA
[2018-06-29] MEDS: MULTIVIT-MIN/FA/LYCOPEN/LUTEIN 1 TAB TABLET PO SCH (10:42)
[2018-06-29] MEDS: ESCITALOPRAM OXALATE 10 MG TAB PO SCH (10:43)
[2018-06-29] MEDS: CALCIUM CARBONATE/VITAMIN D3 1 TAB TABLET PO SCH (10:43)
[2018-06-29] MEDS: ceFAZolin SODIUM 1 GM in DEXTROSE 5 % IN WATER 100 ML IV SCH ×4 (10:58→17:10)
--- NOTE | 2018-06-29 11:23 | ANES ---
Post Anesthesia Assessment - Vital Signs Vitals: Last Vital Signs Temp 36.7 C 06/29/18 10:25 Pulse 65 06/29/18 10:25 Resp 12 06/29/18 10:25 BP 94/56 06/29/18 10:25 Pulse Ox 95 06/29/18 10:25 Airway Patency: Normal - Mental Status Level Of Consciousness: Awake - Pain Level Pain Score: 0 - N/V Assessment Nausea/Vomiting Presence: None Dehydration:: No
[2018-06-29] MEDS: oxyCODONE HCL/ACETAMINOPHEN 1 TAB TABLET PO PRN (12:55)
[2018-06-29] MEDS: SENNOSIDES/DOCUSATE SODIUM 1 TAB TABLET PO SCH (20:57)
[2018-06-30] MEDS: ceFAZolin SODIUM 1 GM in DEXTROSE 5 % IN WATER 100 ML IV SCH ×2 (00:13)
[2018-06-30] MEDS: oxyCODONE HCL/ACETAMINOPHEN 1 TAB TABLET PO PRN ×3 (00:18→13:10)
[2018-06-30] MEDS: KETOROLAC TROMETHAMINE 15 MG/ML VIAL IV SCH ×2 (04:12→09:47)
[2018-06-30 06:16] LABS: Hematocrit 32.1 % (37.0-47.0); Hemoglobin 10.5 gm/dL (12.5-16.0); Mean Cell Volume 92.5 fl (78-100); Mean Corpuscular Hemoglobin 30.3 pg (27-31); Mean Corpuscular Hgb Conc 32.7 g/dl (32-36); Mean Platelet Volume 10.1 fl (8-12.5); Platelet Count 179 K/mm3 (150-450); Red Blood Count 3.47 M/mm3 (4.2-5.4); Red Cell Distribution Width 13.4 % (11.5-14.0); White Blood Count 9.2 K/mm3 (4.0-10.5)
[2018-06-30 06:25] LABS: Anion Gap 9.2 mmol/L (6.8-13.8); BUN/Creatinine Ratio 21.3 (9.0-21.6); Calcium * 8.7 mg/dL (7.9-10.9); Carbon Dioxide 31.3 mmol/L (24-32.6); Potassium 4.5 mmol/L (3.4-4.6)
[2018-06-30] MEDS: MULTIVIT-MIN/FA/LYCOPEN/LUTEIN 1 TAB TABLET PO SCH (08:27)
[2018-06-30] MEDS: CALCIUM CARBONATE/VITAMIN D3 1 TAB TABLET PO SCH (08:27)
[2018-06-30] MEDS: ESCITALOPRAM OXALATE 10 MG TAB PO SCH (08:27)
[2018-06-30] MEDS: MORPHINE SULFATE 15 MG TABLET.SA PO SCH (08:30)
[2018-06-30] MEDS ORDERED: ENOXAPARIN SODIUM 40 MG/0.4 ML SYRG SC SCH (08:59)
--- NOTE | 2018-06-30 12:39 | DS ---
(1) Status post total right knee replacement Problem: Acute (2) Acute blood loss anemia Problem: Acute (3) Status post left knee replacement Problem: Acute (4) Generalized anxiety disorder Problem: Chronic (5) Major depression Problem: Chronic Qualifiers: Major depression recurrence: recurrent Active/Remission status: currently active Major depression episode severity: mild Qualified Code(s): F33.0 - Major depressive disorder, recurrent, mild Description of Stay: Mrs. Murry was admitted to the floor after undergoing staged bilateral total knee arthroplasty. Tolerated this well. Was admitted to the floor postoperatively for 24 hours of IV antibiotics after each knee, pain control, medical comanagement, and occupational and physical therapy. OT and PT were consulted to assist with activities of daily living and ambulation. Was made weightbearing as tolerated with range of motion as tolerated. Pain was initially controlled with IV regimen. This was transitioned to oral once tolerating a by mouth intake. Was resumed on home diet and medications. Had a Solis catheter inserted and the operating room which was discontinued on postoperative day 1 after the second knee. A drain was placed intraoperatively into each knee which was discontinued on postoperative day 1. Lovenox SCD and CARLOS hose were utilized for DVT prophylaxis. Vital signs remained stable to the hospital course. Serial labs were obtained which showed a final hemoglobin of 10.5 grams. BMP was reviewed and was stable. Physical examination throughout the hospital course showed an extremity that had sensation that was intact to light touch, palpable pulses, a benign wound, motor intact to the toes, ankle, and knee. Knee range of motion was approximately 5 degrees to 60 degrees. Once an oral pain regimen was tolerated and physical therapy goals were met, it was felt that they were stable for discharge to home. Instructions: Continue with weightbearing as tolerated and range of motion as tolerated. It is okay to shower and get the wound wet as long as there is no drainage from the wound. Do not bathe or soak the wound. If there is any drainage from the wound keep the wound clean and dry and cover with dry gauze and tape. Change every 2- 3 days as needed if there is any drainage. Cover wound while showering if there is any drainage. Continue with physical therapy. Resume home diet. Report any fever over 101.5 Fahrenheit, uncontrolled pain, increased drainage, foul odor of drainage, new or increased calf pain or shortness of breath, or any other significant complaints. A 325mg dialy aspirin will be started after finishing anticoagulation if not allergic. Continue with CARLOS hose on the operative extremity until instructed otherwise. No driving until instructed otherwise. Follow up in approximately 10-14 days. Procedures Performed: see notes below List Procedures: Bilateral total knee arthroplasty Results and Findings: Lab Pending Results 06/28/18 05:05: WBC 6.4, RBC 3.82 L, Hgb 11.6 L, Hct 35.0 L, MCV 91.6, MCH 30.4, MCHC 33.1, RDW 13.5, Plt Count 189, MPV 10.4 06/28/18 05:05: Sodium 142, Plasma Sodium 142, Potassium 4.3, Chloride 108 H, Carbon Dioxide 27.0, Anion Gap 11.3, BUN 22, Creatinine 0.91, Est GFR (Non-Af Amer) 65, BUN/Creatinine Ratio 24.2 H, Random Glucose 98, Calcium 8.3 06/30/18 06:00: WBC 9.2 D, RBC 3.47 L, Hgb 10.5 L, Hct 32.1 L, MCV 92.5, MCH 30.3, MCHC 32.7, RDW 13.4, Plt Count 179, MPV 10.1 06/30/18 06:00: Sodium 142, Plasma Sodium 142, Potassium 4.5, Chloride 106, Carbon Dioxide 31.3, Anion Gap 9.2, BUN 20, Creatinine 0.94, Est GFR (Non-Af Amer) 63, BUN/Creatinine Ratio 21.3, Random Glucose 115 H, Calcium 8.7 Discharge Location: Home Disposition: Home self-care Condition: Good Discharge Activity: Activity as tolerated, Weight bearing Discharge Diet: General/regular food Referrals: Sergey Cohen DO [Primary Care Provider] - Additional Patient Instructions (free text): Physical Therapy at [facility] outpatient rehab department on Monday07/02/18 at 11:30am. Follow up with Dr Phillips's office Orthopedics on 07/19/18 at 9:45am. Prescriptions (Any new or edited meds): Enoxaparin Sodium [Lovenox] 40 mg SC Q24H #7 disp.syrin Morphine Sulfate [Ms Contin] 15 mg PO Q12H #14 tablet.sa oxyCODONE HCL/ACETAMINOPHEN [Percocet 5 MG/325 MG] 2 tab PO Q4H PRN #60 tab PRN Reason: Moderate Pain (Pain Scale 4-6) Sennosides/Docusate Sodium [Senokot-S] 2 tab PO HS #60 tab Complete Home Medications List: Complete Home Medication List: calcium carbonate-vitamin D3 600 mg calcium-200 unit capsule 2 cap PO DAILY cap 11/26/17 bxevlbgm-kuyzexn-cnap-lutein tablet 1 mcg PO DAILY tab 11/28/17 glucosamine-chondroitin 250 mg-200 mg tablet 1 tab PO BID tab 01/16/18 escitalopram 10 mg tablet 15 mg PO DAILY #45 tab 04/24/18 ibuprofen 800 mg tablet 800 mg PO BID-TID PRN 06/05/18 walker See Dose Instructions .ROUTE .MEDSUPPLY #1 ea 06/18/18 Enoxaparin Sodium [Lovenox] 40 mg SC Q24H #7 disp.syrin 06/30/18 Morphine Sulfate [Ms Contin] 15 mg PO Q12H #14 tablet.sa 06/30/18 Sennosides/Docusate Sodium [Senokot-S] 2 tab PO HS #60 tab 06/30/18 oxyCODONE HCL/ACETAMINOPHEN [Percocet 5 MG/325 MG] 2 tab PO Q4H PRN #60 tab 06/30/18 Amb Orders for Discharge: PT Evaluation and Treatment* Facility: [facility], Location: Rehabilitation Services
[2018-06-30 15:35] VITALS: BP 117/66
== END 2018-06-30 14:00 | disposition home or self-care (01) | DRG 462 ==
LOC: MS 06:23 → EDSTATUS 08:30
PROVIDERS: ADMIT Orthopaedic Surgery; ATTEND Orthopaedic Surgery
DX: F32.9 Major depressive disorder, single episode, unspecified; F17.210 Nicotine dependence, cigarettes, uncomplicated; D62 Acute posthemorrhagic anemia; M17.0 Bilateral primary osteoarthritis of knee; F41.1 Generalized anxiety disorder
CPT/HCPCS: 36415; 73560; 80048; 85027; 97110; 97116; 97161; 97165; 97166; 97530